=== PATIENT | male | born 1990 | race Caucasian/White ===

== ENCOUNTER 2022-05-21 22:35 | Emergency (ER) | payer BC ==
[~2022-05-21] VITALS: Ht 185.4 cm; Wt 74.8 kg
--- NOTE | 2022-05-21 23:23 | NUR ---
BIBS C/O PAIN TO THE RIGHT BUDDHISM AND RIGHT EYE SINCE 07/08/21. SEEN BY SPECIALIST BUT UNRELIEVED BY ADVIL AND TYLENOL. PLACED COMFORTABLY IN BED. VITALS CHECKED.
[2022-05-21] MEDS ORDERED: SUMATRIPTAN SUCCINATE 6 MG/0.5 ML VIAL SQ ONE (23:41)
[2022-05-21] MEDS ORDERED: METOCLOPRAMIDE HCL 10 MG/2 ML VIAL ONE (23:41)
[2022-05-21] MEDS: IV NS 0.9% 1,000 ML BAG IV ONE (23:50)
[2022-05-21] MEDS: METOCLOPRAMIDE HCL 10 MG/2 ML VIAL IV ONE (23:51)
[2022-05-21] MEDS: SUMATRIPTAN SUCCINATE 6 MG/0.5 ML VIAL SQ ONE (23:51)
--- NOTE | 2022-05-22 00:35 | NUR ---
IV CANNULA REMOVED
--- NOTE | 2022-05-22 00:35 | NUR ---
Patient discharged to home in stable condition. Written and verbal after care instructions given. Patient verbalizes understanding of instruction.
[2022-05-22 00:36] VITALS: BP 122/81
== END 2022-05-22 00:40 | disposition home or self-care (01) ==
LOC: ER 22:46
DX: G43.809 Other migraine, not intractable, without status migrainosus (principal); Z60.2 Problems related to living alone
CPT/HCPCS: 96372; 96374; 99284; J2765; J3030; J7030